=== PATIENT | male | born 1995 | race African-American/Black ===

== ENCOUNTER 2024-01-28 07:13 | Day surgery (SDC) | payer OTHER ==
[2024-01-15 12:54] VITALS: BMI 26.7
[2024-01-28] MEDS ORDERED: KETOROLAC TROMETHAMINE 30 MG/1 ML VIAL ONE (07:14)
[2024-01-28] MEDS ORDERED: ONDANSETRON 4 MG/2 ML VIAL ONE (07:14)
[2024-01-28] MEDS ORDERED: ceFAZolin SODIUM 1 GM VIAL ONE (07:14)
[2024-01-28] MEDS ORDERED: LIDOCAINE HCL/PF 2% SDV 5ML VIAL ONE ×2 (07:14→07:19)
[2024-01-28] MEDS ORDERED: DEXAMETHASONE SOD PHOSPHATE 4 MG/1 ML VIAL ONE ×2 (07:14→08:38)
[2024-01-28] MEDS ORDERED: PROPOFOL 40 ML ONE (07:15)
[2024-01-28] MEDS ORDERED: MIDAZOLAM HCL 2 MG/2 ML SINGLE DOSE VIAL ONE (07:19)
[2024-01-28] MEDS ORDERED: CEFAZOLIN 1 GM in DEXTROSE 5%-WATER - 50 ML IVPB ONE (07:25)
[2024-01-28] MEDS ORDERED: BUPIVACAINE HCL/PF 0.5% (5 MG/ML) 30 ML VIAL IJ ONE (07:29)
[2024-01-28] MEDS ORDERED: BUPIVACAINE HCL/EPINEPHRINE/PF 30 ML VIAL IJ ONE (07:32)
[2024-01-28] MEDS ORDERED: VANCOMYCIN 1,000 MG VIAL (RESTRICTED TO ID ONLY) ONE (09:24)
[2024-01-28] MEDS ORDERED: ROCURONIUM BROMIDE 50 MG/5 ML SYRINGE ONE (09:44)
[2024-01-28] MEDS ORDERED: ACETAMINOPHEN INJECTION 100 ML IVPB ONE (10:30)
[2024-01-28] MEDS ORDERED: LACTATED RINGERS SOLUTION 1,000 ML IV SCH (12:45)
[2024-01-28] MEDS ORDERED: ONDANSETRON 4 MG/2 ML VIAL IVPUSH PRN (12:47)
[2024-01-28] MEDS ORDERED: oxyCODONE HCL 5 MG TABLET PO PRN ×2 (12:47)
[2024-01-28] MEDS: oxyCODONE HCL 5 MG TABLET PO ONE (14:20)
[2024-01-28] MEDS ORDERED: oxyCODONE HCL 5 MG TABLET ONE (14:26)
[2024-01-28 14:50] VITALS: RESP 16; TEMP 97.1
[2024-01-28 15:08] VITALS: PULSE 68
[2024-01-28 15:59] VITALS: BP 121/74
== END 2024-01-28 16:00 | disposition home or self-care (01) ==
LOC: FASU 07:13
PROVIDERS: ATTEND Orthopaedic Surgery
PROC: 0RQJ0ZZ Repair Right Shoulder Joint, Open Approach (ICD-10-PCS; 2024-01-28)
PROC: 0RBJ4ZX Excision of Right Shoulder Joint, Percutaneous Endoscopic Approach, Diagnostic (ICD-10-PCS; principal; 2024-01-28 08:56)
DX: M24.411 Recurrent dislocation, right shoulder (principal); M85.811 Other specified disorders of bone density and structure, right shoulder; M65.811 Other synovitis and tenosynovitis, right shoulder; M19.011 Primary osteoarthritis, right shoulder; S42.201A Unspecified fracture of upper end of right humerus, initial encounter for closed fracture; X58.XXXA Exposure to other specified factors, initial encounter; Y92.9 Unspecified place or not applicable; Y93.9 Activity, unspecified
CPT/HCPCS: 23120; 23460; 29823; C1713; 73030-TC-RT-FY; 94760; J0131